=== PATIENT | male | born 1945 | race Caucasian/White ===

== ENCOUNTER → 2025-01-16 | Outpatient (CLI) | payer OTHER ==
[2025-01-16 13:59] LABS: Alanine Aminotransfer (ALT/SGP 35.0 U/L (12-78); Albumin, Blood 3.7 g/dL (3.4-5.0); Albumin/Globulin Ratio 0.9 (0.8-1.8); Anion Gap 8.0 mmol/L (3-11); Aspartate Aminotrans (AST/SGOT 48.0 U/L (12-37); Bilirubin, Total 0.3 mg/dL (0.1-1.0); Blood Urea Nitrogen 14.0 mg/dL (8-24); CO2, Blood 27.0 mmol/L (21-32); Calcium, Blood 9.3 mg/dL (8.5-10.1); Chloride, Blood 106.0 mmol/L (98-108); Creatinine, Blood 0.76 mg/dL (0.60-1.20); Globulin, Blood 4.0 g/dL (2.2-4.0); Glucose, Blood 110.0 mg/dL (70-99); Potassium, Blood 3.7 mmol/L (3.5-5.5); Sodium, Blood 137.0 mmol/L (136-145); Total Protein, Blood 7.7 g/dL (6.4-8.2)
== END | disposition home or self-care (01) ==
LOC: LAB 13:06 → LAB SHORT 13:06
PROVIDERS: Internal Medicine Hematology & Oncology
DX: C34.90 Malignant neoplasm of unspecified part of unspecified bronchus or lung (principal)
CPT/HCPCS: 80053

== ENCOUNTER 2025-04-15 10:41 | Emergency (ER) | payer OTHER ==
[~2025-04-15] VITALS: Ht 172.7 cm; Wt 85.7 kg
[2025-04-15] MEDS ORDERED: DECADRON4 M1 PO (11:06)
[2025-04-15] MEDS ORDERED: DICLOFENAC SOD100 GM (11:06)
[2025-04-15] MEDS ORDERED: FOLI1 PO (11:07)
[2025-04-15] MEDS ORDERED: METF500C PO (11:07)
[2025-04-15] MEDS ORDERED: GABA300 PO (11:07)
[2025-04-15] MEDS ORDERED: ONDA4 (11:08)
[2025-04-15] MEDS ORDERED: OLAN2.5 (11:08)
[2025-04-15] MEDS ORDERED: ZOCOR20 MG PO (11:09)
== END 2025-04-15 11:59 | disposition home or self-care (01) ==
LOC: ER 10:41
DX: S00.31XA Abrasion of nose, initial encounter (principal); S00.83XA Contusion of other part of head, initial encounter; W01.0XXA Fall on same level from slipping, tripping and stumbling without subsequent striking against object, initial encounter
CPT/HCPCS: 70450; 72125; 99284-25